=== PATIENT | male | born 1930 | race Caucasian/White ===

== ENCOUNTER 2018-05-13 10:06 | Inpatient (IN) | payer MEDICARE, OTHER ==
[2018-05-13 10:52] LABS: Hemoglobin 10.3 g/dL (14.0-18.0); Mean Corpuscular HGB CONC 31.8 g/dL (32.0-36.0); Mean Corpuscular Hemoglobin 32.8 pg (27.0-31.0); Mean Platelet Volume 8.8 fL (7.4-10.4); Platelet Count 386 thou/uL (130-400); RBC Distribution Width 20.6 % (11.5-14.5); Red Blood Cell (RBC) Count 3.14 mill/uL (4.70-6.10); White Blood Cell (WBC) Count 11.4 thou/uL (4.8-10.8)
[2018-05-13 11:11] LABS: Acanthocytes SLIGHT = 1-5 cells (100X) (None Seen); Band 39 % (5-11); Burr Cells SLIGHT = 2-5 cells (100X) (0-1/hpf); Hypochromia SLIGHT = 6-15 cells (100X) (0-5/hpf); Lymphocytes 11 % (21-51); MDiff Complete? YES; Macrocytosis SLIGHT = 6-15 cells (100X) (0-5/hpf); Monocytes 4 % (0-10); Neutrophil 45 % (42-75); PLT Morphology Comment Appears Adequate; Polychromasia SLIGHT = 2-3 cells (100X) (0-2/hpf); Target Cells SLIGHT = 2-5 cells (100X) (0-1/hpf)
[2018-05-13 11:12] LABS: ALT (SGPT) 7 U/L (8-55); AST (SGOT) 15 U/L (5-34); Albumin 3.9 g/dL (3.4-4.8); Alkaline Phosphatase 95 U/L (40-150); Anion Gap 14 mmol/L (10-20); BUN (Urea Nitrogen) 55 mg/dL (8.4-25.7); Bilirubin, Total 0.8 mg/dL (0.2-1.2); Calc. Creatinine Clearance 0 mL/min (70-130); Calcium 9.3 mg/dL (7.8-10.44); Carbon Dioxide 18 mmol/L (23-31); Chloride 106 mmol/L (98-107); Estimated GFR-MDRD 28; Globulin 3.6 g/dL (2.4-3.5); Glucose 195 mg/dL (83-110); Potassium 4.8 mmol/L (3.5-5.1); Protein, Total 7.5 g/dL (5.8-8.1); Sodium 133 mmol/L (136-145)
--- NOTE | 2018-05-13 11:24 | RAD ---
PORTABLE CHEST ONE VIEW: Date: 05-13-18 Time: 10:54 a.m. History: Cough, dyspnea. FINDINGS/IMPRESSION: Comparison is made with exam of 10-29-16. Left sided pacemaker remains in place. The heart size is enlarged. Mild pulmonary vascular congestion . Infiltrate is seen in the right infrahilar region. No pneumothoraces or large effusions identified. POS: [facility]
[2018-05-13] MEDS ORDERED: Water For Inject, Bacteriostat 0 ML ONE (11:26)
[2018-05-13] MEDS ORDERED: Water For Inject, Bacteriostat 30 ML ONE (11:26)
[2018-05-13] MEDS ORDERED: methylPREDNISolone Sod Succ/PF 125 MG/2 ML VIAL ONE (11:26)
[2018-05-13] MEDS ORDERED: Sodium Chloride 0.9% 100 ML ONE (11:45)
[2018-05-13] MEDS ORDERED: Piperacillin/Tazobactam 4.5 GM VIAL ONE (11:45)
[2018-05-13] MEDS ORDERED: Vancomycin HCl 1 GM in Premix Bag 1 BAG IVPB SCH (12:00)
[2018-05-13 12:40] LABS: CKMB 2.5 ng/mL (0-6.6)
--- NOTE | 2018-05-13 14:15 | PDOC.FPRHP ---
- History of Present Illness Chief Complaint: SOB History of Present Illness: This is an 87 yo M here for SOB. Patient is a resident at a long term facility and is a poor historian despite being AXOX3. Patient is unable to state how long he has had symptoms. Patient describes having a cough productive of yellow sputum. Patient endorse diarrhea, which is normal for him. Patient able to states name, , month/year, but states that he is 30-40 yrs old and lives w/ his mother. Patient has a PMH significant for COPD, afib, CAD, CHF, and CKD III. Patient denies fever/chills, NV, wheezing, chest or abdominal pain, LE swelling. ED Course: Given 324 mg oral, 1g Vanc IV, 750mg levaquin IV, 4.5g IV zosyn, methylprednisolone 125mg IV, and 3ml Duoneb - Allergies/Adverse Reactions Allergies Allergy/AdvReac Type Severity Reaction Status Date / Time gabapentin Allergy Unknown Verified 05/13/18 19:00 propoxyphene napsylate Allergy Unknown Verified 05/13/18 19:00 [facility] tramadol Allergy Unknown Verified 05/13/18 19:00 - Home Medications Medication Instructions Recorded Confirmed Type Acetaminophen [Tylenol] 650 mg PO Q4HR PRN 05/13/18 05/13/18 History Albuterol Sulfate [Proair 90 mcg IH BID 05/13/18 05/13/18 History Respiclick] Ascorbic Acid [Vitamin C] 250 mg PO DAILY 05/13/18 05/13/18 History Carvedilol [Coreg] 3.125 mg PO BID 05/13/18 05/13/18 History Cholecalciferol (Vitamin D3) 2,000 unit PO DAILY 05/13/18 05/13/18 History [Vitamin D3] Citalopram [CeleXA] 10 mg PO DAILY 05/13/18 05/13/18 History Diclofenac Sodium [Diclofono] 2.5 gm TP QID PRN 05/13/18 05/13/18 History Ferrous Sulfate [Feosol] 325 mg PO DAILY 05/13/18 05/13/18 History Folic Acid [Folvite] 1 mg PO DAILY 05/13/18 05/13/18 History Furosemide [Lasix] 20 mg PO 1200 05/13/18 05/13/18 History Furosemide [Lasix] 40 mg PO DAILY 05/13/18 05/13/18 History Isosorbide Mononitrate [Imdur ER] 30 mg PO DAILY 05/13/18 05/13/18 History Magnesium Oxide [Magnesium] 400 mg PO DAILY 05/13/18 05/13/18 History Pantoprazole Sodium 40 mg PO DAILY 05/13/18 05/13/18 History Simvastatin [Zocor] 10 mg PO HS 05/13/18 05/13/18 History - History PMHx: COPD, CHF - 2017 had EF 20-25%, atrial fibrillation, CAD, CKD III, LA, HLD , HTN, depression PSHx: colectomy, appendectomy, pacemaker, cholecystectomy, back surgery FHx: unknown Social: states he is a never smoker, occasional beer drinker, denies drug use - Review of Systems General: denies: fever/chills, weight/appetite/sleep changes, night sweats, fatigue ENT: denies: nasal congestion, rhinorrhea Respiratory: reports: cough, shortness of breath. denies: congestion, exercise intolerance Cardiovascular: denies: chest pain, palpitation, edema Gastrointestinal: reports: diarrhea. denies: nausea, vomiting, constipation, abdominal pain Genitourinary: denies: dysuria Skin: denies: rashes Musculoskeletal: denies: pain, swelling - Vital signs BP: 138/91 HR: 86 RR: 24 Tmax: 98.5F Pox: 91% on RA; 98% on 2LNC Wt: 73kg - Physical Exam Constitutional: awake, alert and oriented -Constitutional: elderly male, no acute distress HEENT: normocephalic and atraumatic, PERRLA, EOMI, MMM -HEENT: poor dentition, difficulty hearing Neck: supple, FROM Chest: no-tender to palpation, no lesions Heart: RRR, normal S1/S2, pulses present, no edema Lungs: no respiratory distress, no retractions -Lungs: expiratory wheeze heart diffusely, more prominent in right upper lobe Abdomen: soft, non-tender, bowel sounds present, no masses/distention, no hernias Musculoskeletal: normal structure, ROM grossly normal Neurological: no focal deficit Skin: no rash/lesions -Psychiatric: AXOX3, although becomes confused at times FMR H&P: Results - Labs Result Diagrams: 05/14/18 05:33 05/14/18 05:33 Lab results: WBC 11.4 thou/uL (4.8-10.8) H 05/13/18 10:33 Hgb 10.3 g/dL (14.0-18.0) L 05/13/18 10:33 Hct 32.3 % (42.0-52.0) L 05/13/18 10:33 MCV 103.0 fL (78.0-98.0) H 05/13/18 10:33 Plt Count 386 thou/uL (130-400) 05/13/18 10:33 Band Neuts % (Manual) 39 % (5-11) H 05/13/18 10:33 Sodium 133 mmol/L (136-145) L 05/13/18 10:33 Potassium 4.8 mmol/L (3.5-5.1) 05/13/18 10:33 Chloride 106 mmol/L (98-107) 05/13/18 10:33 Carbon Dioxide 18 mmol/L (23-31) L 05/13/18 10:33 BUN 55 mg/dL (8.4-25.7) H 05/13/18 10:33 Creatinine 2.20 mg/dL (0.7-1.3) H 05/13/18 10:33 Glucose 195 mg/dL (83-110) H 05/13/18 10:33 Lactic Acid 1.1 mmol/L (0.5-2.2) 05/13/18 13:00 Calcium 9.3 mg/dL (7.8-10.44) 05/13/18 10:33 Total Bilirubin 0.8 mg/dL (0.2-1.2) 05/13/18 10:33 AST 15 U/L (5-34) 05/13/18 10:33 ALT 7 U/L (8-55) L 05/13/18 10:33 Alkaline Phosphatase 95 U/L (40-150) 05/13/18 10:33 CK-MB (CK-2) 2.5 ng/mL (0-6.6) 05/13/18 10:28 B-Natriuretic Peptide 4221.9 pg/mL (0-100) H 05/13/18 10:28 Serum Total Protein 7.5 g/dL (5.8-8.1) 05/13/18 10:33 Albumin 3.9 g/dL (3.4-4.8) 05/13/18 10:33 - Radiology Interpretation Chest x-ray Status: report reviewed by me (Heart size enlarged, pulm vascular congestion; infiltrate in right infrahilar region) FMR H&P: A/P - Problem List (1) Community acquired bacterial pneumonia Current Visit: Yes Status: Acute Code(s): J15.9 - UNSPECIFIED BACTERIAL PNEUMONIA (2) Acute worsening of stage 3 chronic kidney disease Current Visit: No Status: Acute Code(s): N18.3 - CHRONIC KIDNEY DISEASE, STAGE 3 (MODERATE) (3) Dementia Current Visit: No Status: Acute Code(s): F03.90 - UNSPECIFIED DEMENTIA WITHOUT BEHAVIORAL DISTURBANCE Qualifiers: Dementia type: unspecified type Comment: Supportive measures, re-orientation techniques (4) CAD (coronary artery disease) Current Visit: No Status: Chronic Code(s): I25.10 - ATHSCL HEART DISEASE OF [place] CORONARY ARTERY W/O ANG PCTRS Comment: No ACS, continue medical mgmt (5) COPD (chronic obstructive pulmonary disease) Current Visit: No Status: Chronic Comment: No exacerbation currently, general pulmonary supportive measures. (6) Chronic systolic (congestive) heart failure Current Visit: No Status: Chronic Code(s): I50.22 - CHRONIC SYSTOLIC ( CONGESTIVE) HEART FAILURE Comment: EF 25%, compensated currently (7) Dyslipidemia Current Visit: No Status: Chronic Code(s): E78.5 - HYPERLIPIDEMIA, UNSPECIFIED (8) Hx of deep venous thrombosis Current Visit: Yes Status: Acute Code(s): Z86.718 - PERSONAL HISTORY OF OTHER VENOUS THROMBOSIS AND EMBOLISM (9) Atrial fibrillation Current Visit: No Status: Chronic Code(s): I48.91 - UNSPECIFIED ATRIAL FIBRILLATION Qualifiers: Atrial fibrillation type: paroxysmal Qualified Code(s): I48.0 - Paroxysmal atrial fibrillation Comment: paced rhythm, rate controlled currently (10) Macrocytic anemia Current Visit: No Status: Chronic Code(s): D53.9 - NUTRITIONAL ANEMIA, UNSPECIFIED (11) COPD exacerbation Current Visit: Yes Status: Acute Code(s): J44.1 - CHRONIC OBSTRUCTIVE PULMONARY DISEASE W (ACUTE) EXACERBATION - Plan Sepsis 2/2 to COPD exacerbation 2/2 CAP - patient met sepsis criteria in the ED w/ WBC 11.4, RR 24 + PNA source - 39 % bands present - Will give gentle fluids - CURB 65: 3 points - CXR: infiltrate in right infrahilar region - pro delmy pending - LA 1.9, will trend - blood cx pending - Urine: strep pneumo and legionelle pending - for COPD exacerbation and CAP coverage: will continue w/ vanc/zosyn/levaquin - for COPD exacerbation: duonebs and prednisone Elevated Trop - 0.103 - Will trend X 3 - no active chest pain CULLEN on CKD - BUN 55,Cr 2.20, elevated from baseline - CrCl 24 - Will monitor fluid status Hyponatremia - 133, will continue to monitor - daily BMPs Macrocytic anemia - Hgb 10.3 - MCV 103 - Will obtain folate, B12 CHFrEF, present on admission - Echo in 2017: EF 20-25% - BNP 4000, at baseline CAD - aware, will continue home meds previous DVT - on xarelto -will continue CAD - aware, will continue home meds HLD - aware, will continue home meds HTN - aware, will continue home meds Atrial Fibrillation - patient will monitored on tele - sinus rhythm at this time hx of LA, pacemaker in place - aware, will trend troponins Dementia - Patient does not have capacity at this time to make medical decision. Patient knows name/ but does not always know where he is. Patient does now know why is he here. - Working on finding next of kin/medical decision maker. Requested records from his NH - After review of records - patients daughter info in 07/2016: [phone] & [phone] - will attempt to call to find out more information DISPO: admit to tele inpatient. CODE: FULL Case discussed with Dr. Love FMR H&P: Upper Level - Pertinent history 87M presenting [facility] for [facility]3 days of increased productive cough and shortness of breath. Sputum has been white/yellow per nursing staff. Apparently, patient was hypoxic to 88% on RA while en route to ED via EMS. He was given one Duoneb and 125mg of Solu-medrol and then evaluated by ED physician. Patient appears to have dementia and is not a reliable historian. No paperwork was sent from facility. PMH includes HFrEF (last TTE from July 2016 shows EF of 20-25%) s/p pacemaker, COPD, afib, CAD s/p LA, and CKD III, HTN, HLD. - Pertinent findings CXR: likely RML infiltrate LA: 1.9 BNP: roughly 4000, baseline appears to be 7427-6852 WBC: 11.4 BUN/Cr: 55/2.2 - Plan Date/Time: 05/13/18 1411 I, Mason Church, have evaluated this patient and agree with findings/plan as outlined by [facility] intern[facility] resident. Pertinent changes/additions are listed here. HCAP: start vanc, levaquin, and zosyn due to [facility] affiliation. Procalcitonin pending. Does not appear volume down at this time. Will only give a 500cc bolus given his severely reduced ejection fraction. Blood and urine cultures pending. COPD exacerbation: physical exam consistent with exacerbation. Start oral steroids and continue antibiotics. Duonebs PRN CULLEN on CKDIII: Monitor with AM labs s/p fluids Indeterminate troponin: trend and f/u accordingly. Asymptomatic. Attending Addendum - Attending Addendum Date/Time: 05/15/18 8511 I personally evaluated the patient and discussed the management with Dr. Dickerson at the time of admission. I agree with the History, Examination, Assessment and Plan documented above with any addition or exceptions noted below.
[2018-05-13] MEDS ORDERED: Ondansetron PF 4 MG/2 ML Vial IVP PRN ×2 (16:55→17:09)
[2018-05-13] MEDS ORDERED: Acetaminophen 325 MG TAB PO PRN (16:55)
[2018-05-13] MEDS ORDERED: Ondansetron ODT 4 MG TAB SL PRN (16:55)
[2018-05-13] MEDS ORDERED: Albuterol Sulfate 2.5 mg/3 ml Neb NEB PRN (17:09)
[2018-05-13] MEDS ORDERED: Ondansetron ODT 4 MG TAB PO PRN (17:09)
[2018-05-13 18:26] LABS: Troponin I 0.113 ng/mL (< 0.028)
[2018-05-13 18:28] VITALS: BMI 25.7
[2018-05-13] MEDS: Piperacillin/Tazobactam 4.5 GM in Sodium Chloride 0.9% 100 ML IVPB SCH ×2 (18:42→23:50)
[2018-05-13] MEDS: Lactated Ringer's 500 ML IV SCH (18:46)
[2018-05-14] MEDS: Piperacillin/Tazobactam 4.5 GM in Sodium Chloride 0.9% 100 ML IVPB SCH ×3 (05:12→16:49)
[2018-05-14 06:01] LABS: Legionella Urinary Ag Negative (Negative); Strep pneumo Urine Ag NEGATIVE (NEGATIVE)
[2018-05-14 06:13] LABS: Anion Gap 13 mmol/L (10-20); BUN (Urea Nitrogen) 56 mg/dL (8.4-25.7); Calc. Creatinine Clearance 23 mL/min (70-130); Calcium 8.9 mg/dL (7.8-10.44); Carbon Dioxide 18 mmol/L (23-31); Chloride 108 mmol/L (98-107); Estimated GFR-MDRD 28; Glucose 184 mg/dL (83-110); Potassium 4.2 mmol/L (3.5-5.1); Sodium 135 mmol/L (136-145)
[2018-05-14] MEDS: Lactated Ringer's 500 ML IV SCH (06:25)
--- NOTE | 2018-05-14 06:30 | PDOC.FM ---
- Subjective Subjective: Pt reports good rest overnight. He has no complaints at this time. Denies fever/chills, denies sob, denies cough - Objective MAR Reviewed: Yes Vital Signs & Weight: Vital Signs (12 hours) Temp Pulse Resp BP Pulse Ox 05/14/18 04:00 98.5 F 71 20 109/63 96 05/14/18 03:45 96 05/13/18 23:29 96 05/13/18 20:16 97.9 F 71 20 136/66 96 05/13/18 19:13 72 20 96 Weight Weight 70.307 kg Result Diagrams: 05/14/18 05:33 05/14/18 05:33 Phys Exam - Physical Examination Constitutional: NAD HEENT: moist MMs, sclera anicteric Neck: no JVD, supple expiratory crackles in bilateral lung bases Cardiovascular: RRR, no significant murmur Gastrointestinal: soft, non-tender Musculoskeletal: pulses present Neurological: non-focal, moves all 4 limbs Psychiatric: normal affect Skin: no rash, normal turgor Dx/Plan (1) COPD exacerbation Code(s): J44.1 - CHRONIC OBSTRUCTIVE PULMONARY DISEASE W (ACUTE) EXACERBATION Status: Acute (2) Community acquired bacterial pneumonia Code(s): J15.9 - UNSPECIFIED BACTERIAL PNEUMONIA Status: Acute (3) Hx of deep venous thrombosis Code(s): Z86.718 - PERSONAL HISTORY OF OTHER VENOUS THROMBOSIS AND EMBOLISM Status: Acute (4) Acute worsening of stage 3 chronic kidney disease Code(s): N18.3 - CHRONIC KIDNEY DISEASE, STAGE 3 (MODERATE) Status: Acute (5) Dementia Code(s): F03.90 - UNSPECIFIED DEMENTIA WITHOUT BEHAVIORAL DISTURBANCE Status: Acute Qualifiers: Dementia type: unspecified type (6) CAD (coronary artery disease) Code(s): I25.10 - ATHSCL HEART DISEASE OF [place] CORONARY ARTERY W/O ANG PCTRS Status: Chronic (7) COPD (chronic obstructive pulmonary disease) Status: Chronic (8) Chronic systolic (congestive) heart failure Code(s): I50.22 - CHRONIC SYSTOLIC (CONGESTIVE) HEART FAILURE Status: Chronic - Plan Plan: Sepsis 2/2 to COPD exacerbation 2/2 CAP A- patient met sepsis criteria in the ED w/ WBC 11.4, RR 24 + PNA source. 39 % bands present. CXR: infiltrate in right infrahilar region. pro delmy wnl. LA 1.9-> 1.1->1.3. Urine strep pneumo and legionelle negative P- continue PO hydration - f/u on blood cx - continue w/ vanc/zosyn/levaquin, will de-escalate with BCx - duonebs and prednisone indeterminate Trop - 0.103->0.110->0.113 -no cardiac symptoms, will monitor symptoms CULLEN on CKD - BUN 55,Cr 2.21, elevated from baseline but stable - Will monitor fluid status, PO hydration Hyponatremia, resolved - 135, will continue to monitor Macrocytic anemia - Hgb 10.3 - MCV 103 - Will obtain folate, B12 CHFrEF, present on admission - Echo in 2017: EF 20-25% - BNP 4000, at baseline CAD - aware, will continue home meds previous DVT - on xarelto -will continue CAD - aware, will continue home meds HLD - aware, will continue home meds HTN - aware, will continue home meds Atrial Fibrillation - patient will monitored on tele. sinus rhythm at this time Dementia - Patient does not have capacity at this time to make medical decision. Patient knows name/ but does not always know where he is. Patient does now know why is he here. - Working on finding next of kin/medical decision maker. Requested records from his NH - After review of records - patients daughter info in 07/2016: [phone] & [phone] - will attempt to call to find out more information DISPO: admit to tele inpatient. CODE: FULL
[2018-05-14 06:35] LABS: Band 10 % (5-11); Hemoglobin 9.7 g/dL (14.0-18.0); Hypochromia SLIGHT = 6-15 cells (100X) (0-5/hpf); Lymphocytes 5 % (21-51); MDiff Complete? YES; Mean Corpuscular HGB CONC 31.2 g/dL (32.0-36.0); Mean Corpuscular Hemoglobin 32.3 pg (27.0-31.0); Mean Platelet Volume 8.8 fL (7.4-10.4); Neutrophil 85 % (42-75); PLT Morphology Comment Appears Adequate; Platelet Count 376 thou/uL (130-400); RBC Distribution Width 20.8 % (11.5-14.5)
[2018-05-14 11:12] LABS: Folate (Folic Acid) 32.4 ng/mL (7.0-31.4)
[2018-05-14] MEDS: predniSONE 20 MG TAB PO SCH (12:03)
--- NOTE | 2018-05-14 13:58 | EKG ---
Test Reason : Blood Pressure : / mmHG Vent. Rate : 077 BPM Atrial Rate : 089 BPM P-R Int : 000 ms QRS Dur : 132 ms QT Int : 452 ms P-R-T Axes : 000 110 -79 degrees QTc Int : 511 ms Atrial fibrillation with premature ventricular or aberrantly conducted complexes Left ventricular hypertrophy with QRS widening Possible Lateral infarct , age undetermined Inferior infarct , age undetermined Abnormal ECG Confirmed by KAREN RANDHAWA D.O. ([id number]), metropolitan editor GARETT NUGENT ([id number]) on 05/14/2018 1:58:49 PM Referred By: Confirmed By:KAREN RANDHAWA D.O.
[2018-05-14] MEDS ORDERED: Vancomycin HCl 1 GM in Sodium Chloride 0.9% 250 ML 300 ML IVPB SCH (15:00)
[2018-05-14] MEDS ORDERED: Vancomycin HCl 1 GM in Premix Bag 1 BAG IVPB SCH (15:00)
[2018-05-14] MEDS: Acetaminophen 325 MG TAB PO PRN ×2 (18:04→22:19)
[2018-05-15] MEDS: Piperacillin/Tazobactam 4.5 GM in Sodium Chloride 0.9% 100 ML IVPB SCH ×2 (00:04→05:25)
--- NOTE | 2018-05-15 06:03 | PDOC.FM ---
- Subjective Subjective: Pt reports feeling better this morning but has continued cough. No complaints at this time no fever/chills, cough, no sob, no cp - Objective MAR Reviewed: Yes Vital Signs & Weight: Vital Signs (12 hours) Temp Pulse Resp BP Pulse Ox 05/15/18 04:00 97.5 F L 86 18 142/73 H 93 L 05/15/18 02:31 93 L 05/15/18 00:05 97.8 F 83 20 130/63 94 L 05/14/18 22:52 92 L 05/14/18 20:30 97.6 F 83 20 124/57 L 97 05/14/18 19:32 93 L 05/14/18 19:31 93 L Weight Weight 73.21 kg I&O: 05/13/18 05/14/18 05/15/18 06:59 06:59 06:59 Intake Total 740 600 Output Total 200 975 Balance 540 -375 Result Diagrams: 05/15/18 07:45 05/15/18 07:45 Phys Exam - Physical Examination Constitutional: NAD HEENT: moist MMs, sclera anicteric Neck: no nodes, no JVD Respiratory: no rales crackles at R lung apex Cardiovascular: RRR, no significant murmur Gastrointestinal: soft, non-tender Musculoskeletal: no edema, pulses present Neurological: normal sensation Lymphatic: no nodes Psychiatric: normal affect Skin: no rash, normal turgor Dx/Plan (1) COPD exacerbation Code(s): J44.1 - CHRONIC OBSTRUCTIVE PULMONARY DISEASE W (ACUTE) EXACERBATION Status: Acute (2) Community acquired bacterial pneumonia Code(s): J15.9 - UNSPECIFIED BACTERIAL PNEUMONIA Status: Acute (3) Hx of deep venous thrombosis Code(s): Z86.718 - PERSONAL HISTORY OF OTHER VENOUS THROMBOSIS AND EMBOLISM Status: Acute (4) Acute worsening of stage 3 chronic kidney disease Code(s): N18.3 - CHRONIC KIDNEY DISEASE, STAGE 3 (MODERATE) Status: Acute (5) Dementia Code(s): F03.90 - UNSPECIFIED DEMENTIA WITHOUT BEHAVIORAL DISTURBANCE Status: Acute Qualifiers: Dementia type: unspecified type (6) CAD (coronary artery disease) Code(s): I25.10 - ATHSCL HEART DISEASE OF [place] CORONARY ARTERY W/O ANG PCTRS Status: Chronic (7) COPD (chronic obstructive pulmonary disease) Status: Chronic (8) Chronic systolic (congestive) heart failure Code(s): I50.22 - CHRONIC SYSTOLIC (CONGESTIVE) HEART FAILURE Status: Chronic - Plan Plan: Sepsis 2/2 to COPD exacerbation 2/2 CAP A- BCx shows NGTD. patient met sepsis criteria in the ED w/ WBC 11.4, RR 24 + PNA source. 39 % bands present. CXR: infiltrate in right infrahilar region. pro delmy wnl. LA 1.9->1.1->1.3. Urine strep pneumo and legionelle negative P- continue PO hydration - will consider switching to just levaquin - duonebs and prednisone indeterminate Trop - 0.103->0.110->0.113 -no cardiac symptoms, will monitor symptoms CULLEN on CKD - BUN 55,Cr 2.21, elevated from baseline but stable - repeat bmp this AM - Will monitor fluid status, PO hydration Hyponatremia, resolved - 135 yesterday, will continue to monitor Macrocytic anemia - Hgb 10.3 - MCV 103 - folate and b12 wnl CHFrEF, present on admission - Echo in 2017: EF 20-25% - BNP 4000, at baseline CAD - aware, will continue home meds previous DVT - on xarelto -will continue CAD - aware, will continue home meds HLD - aware, will continue home meds HTN - aware, will continue home meds Atrial Fibrillation - patient will monitored on tele. sinus rhythm at this time Dementia - Patient does not have capacity at this time to make medical decision. Patient knows name/ but does not always know where he is. Patient does now know why is he here. - Working on finding next of kin/medical decision maker. Requested records from his OR - After review of records - patients daughter info in 07/2016: [phone] & [phone] - called her and awaiting call back. DISPO: admit to tele inpatient. CODE: FULL
[2018-05-15 08:18] LABS: Anion Gap 13 mmol/L (10-20); BUN (Urea Nitrogen) 59 mg/dL (8.4-25.7); Calc. Creatinine Clearance 23 mL/min (70-130); Calcium 9.2 mg/dL (7.8-10.44); Carbon Dioxide 19 mmol/L (23-31); Chloride 103 mmol/L (98-107); Estimated GFR-MDRD 28; Glucose 167 mg/dL (83-110); Potassium 4.4 mmol/L (3.5-5.1); Sodium 131 mmol/L (136-145)
[2018-05-15 08:19] LABS: Hemoglobin 10.3 g/dL (14.0-18.0); Mean Corpuscular HGB CONC 31.2 g/dL (32.0-36.0); Mean Corpuscular Hemoglobin 32.4 pg (27.0-31.0); Mean Platelet Volume 8.2 fL (7.4-10.4); Platelet Count 387 thou/uL (130-400); RBC Distribution Width 21.1 % (11.5-14.5); Red Blood Cell (RBC) Count 3.17 mill/uL (4.70-6.10); White Blood Cell (WBC) Count 9.1 thou/uL (4.8-10.8)
[2018-05-15] MEDS: predniSONE 20 MG TAB PO SCH (08:53)
[2018-05-15 09:52] LABS: Acanthocytes MODERATE= 6-15 cells (100X) (None Seen); Band 5 % (5-11); Burr Cells MODERATE= 6-15 cells (100X) (0-1/hpf); Hypochromia MODERATE=16-30 cells (100X) (0-5/hpf); Large Platelets SLIGHT; MDiff Complete? YES; Macrocytosis MODERATE=16-30 cells (100X) (0-5/hpf); Monocytes 11 % (0-10); Neutrophil 82 % (42-75); Nucleated RBC 3 % (0); PLT Morphology Comment Appears Adequate; Polychromasia SLIGHT = 2-3 cells (100X) (0-2/hpf); Reactive Lymphocytes 2 % (0-10); Target Cells SLIGHT = 2-5 cells (100X) (0-1/hpf)
[2018-05-15] MEDS: Acetaminophen 325 MG TAB PO PRN ×2 (13:54→22:33)
[2018-05-16] MEDS: Acetaminophen 325 MG TAB PO PRN ×2 (05:17→12:07)
[2018-05-16 05:47] LABS: Anion Gap 14 mmol/L (10-20); BUN (Urea Nitrogen) 62 mg/dL (8.4-25.7); Calc. Creatinine Clearance 22 mL/min (70-130); Calcium 9.8 mg/dL (7.8-10.44); Carbon Dioxide 19 mmol/L (23-31); Chloride 100 mmol/L (98-107); Estimated GFR-MDRD 25; Glucose 139 mg/dL (83-110); Potassium 4.4 mmol/L (3.5-5.1); Sodium 129 mmol/L (136-145)
[2018-05-16 05:57] LABS: Band 3 % (5-11); Hemoglobin 11.2 g/dL (14.0-18.0); Hypochromia SLIGHT = 6-15 cells (100X) (0-5/hpf); Lymphocytes 4 % (21-51); MDiff Complete? YES; Macrocytosis SLIGHT = 6-15 cells (100X) (0-5/hpf); Mean Corpuscular HGB CONC 30.7 g/dL (32.0-36.0); Mean Corpuscular Hemoglobin 31.8 pg (27.0-31.0); Monocytes 4 % (0-10); Neutrophil 89 % (42-75); PLT Morphology Comment Appears Increased; Platelet Count 434 thou/uL (130-400); Polychromasia SLIGHT = 2-3 cells (100X) (0-2/hpf); RBC Distribution Width 20.9 % (11.5-14.5); Red Blood Cell (RBC) Count 3.52 mill/uL (4.70-6.10); Target Cells SLIGHT = 2-5 cells (100X) (0-1/hpf); White Blood Cell (WBC) Count 10.9 thou/uL (4.8-10.8)
--- NOTE | 2018-05-16 08:03 | PRG ---
DATE OF SERVICE: ADDENDUM: Please see the note from Dr. Carlson, for which I agree. This is an 87-year-old, here for COPD and pneumonia, currently on Levaquin, Zosyn, and vancomycin, getting nebulizers, oxygen. Chest is noted for scattered wheezes, rhonchi, and definite crackles on the right side with pneumonias. The plan is to continue the same antibiotics and supportive care for him. Of note, he also has atrial fibrillation and congestive heart failure, systolic, so certainly numerous issues going on right now, but main thing is going to be the pneumonia and treat with antibiotics. Job ID: [id number]
--- NOTE | 2018-05-16 09:01 | PDOC.FM ---
- Subjective Subjective: Pt reports feeling better this AM. Mental status seems to have improved some more. No complaints at this time no fever/chills, no cp no palpitations - Objective MAR Reviewed: Yes Vital Signs & Weight: Vital Signs (12 hours) Temp Pulse Resp BP Pulse Ox 05/16/18 07:50 97.9 F 100 19 161/74 H 95 05/16/18 07:01 98 05/16/18 06:59 96 20 98 05/16/18 04:55 97.9 F 98 23 H 149/89 H 93 L 05/16/18 03:43 20 96 05/16/18 01:37 113 H 16 97 05/16/18 00:00 97.9 F 107 H 22 H 141/79 H 95 05/15/18 21:38 91 16 98 Weight Weight 72.575 kg I&O: 05/15/18 05/16/18 05/17/18 06:59 06:59 06:59 Intake Total 600 1000 Output Total 975 1025 Balance -375 -25 Result Diagrams: 05/19/18 04:32 05/20/18 04:23 Phys Exam - Physical Examination Constitutional: NAD HEENT: moist MMs, sclera anicteric Neck: no nodes, no JVD Respiratory: no rhonchi mild crackles at R lung apex. much improved Cardiovascular: RRR, no significant murmur Gastrointestinal: soft, non-tender Musculoskeletal: no edema, pulses present Neurological: non-focal, normal sensation Lymphatic: no nodes Psychiatric: normal affect Skin: no rash, normal turgor Dx/Plan (1) COPD exacerbation Code(s): J44.1 - CHRONIC OBSTRUCTIVE PULMONARY DISEASE W (ACUTE) EXACERBATION Status: Acute (2) Community acquired bacterial pneumonia Code(s): J15.9 - UNSPECIFIED BACTERIAL PNEUMONIA Status: Acute (3) Hx of deep venous thrombosis Code(s): Z86.718 - PERSONAL HISTORY OF OTHER VENOUS THROMBOSIS AND EMBOLISM Status: Acute (4) Acute worsening of stage 3 chronic kidney disease Code(s): N18.3 - CHRONIC KIDNEY DISEASE, STAGE 3 (MODERATE) Status: Acute (5) Dementia Code(s): F03.90 - UNSPECIFIED DEMENTIA WITHOUT BEHAVIORAL DISTURBANCE Status: Acute Qualifiers: Dementia type: unspecified type (6) CAD (coronary artery disease) Code(s): I25.10 - ATHSCL HEART DISEASE OF [place] CORONARY ARTERY W/O ANG PCTRS Status: Chronic (7) COPD (chronic obstructive pulmonary disease) Status: Chronic (8) Chronic systolic (congestive) heart failure Code(s): I50.22 - CHRONIC SYSTOLIC (CONGESTIVE) HEART FAILURE Status: Chronic - Plan Plan: Sepsis 2/2 to COPD exacerbation 2/2 CAP A- Pt is improved clinically. BCx shows NGTD. patient met sepsis criteria in the ED w/ WBC 11.4, RR 24 + PNA source. 39 % bands present. CXR: infiltrate in right infrahilar region. pro delmy wnl. LA 1.9->1.1->1.3. Urine strep pneumo and legionelle negative P- continue PO hydration - will consider switching to PO levaquin - duonebs and prednisone indeterminate Trop - 0.103->0.110->0.113 -no cardiac symptoms, will monitor symptoms CULLEN on CKD - elevated from baseline but stable - Will consider gently IVF Hyponatremia, resolved - 129 today, will continue to monitor - will consider PO free water restriction and give gentle NS Macrocytic anemia - Hgb improved marginally - MCV 103 - folate and b12 wnl CHFrEF, present on admission - Echo in 2017: EF 20-25% - BNP 4000, at baseline CAD - aware, will continue home meds previous DVT - on xarelto -will continue HLD - aware, will continue home meds HTN - aware, will continue home meds Atrial Fibrillation - patient will monitored on tele. sinus rhythm at this time. pt has pacemaker Dementia - Patient does not have capacity at this time to make medical decision. Patient knows name/ but does not always know where he is. Patient does now know why is he here. - Working on finding next of kin/medical decision maker. Requested records from his NH - After review of records - patients daughter info in 07/2016: [phone] & [phone] - called her and awaiting call back. DISPO: admit to tele inpatient. CODE: FULL Addendum - Attending - Attending Attestation Date/Time: 05/16/18 1212 I personally evaluated the patient and discussed the management with Dr. Carlson and Dr. Mariee I agree with the History, Examination, Assessment and Plan documented above with any addition or exceptions noted below. 87 yo male with multiple medical conditions admitted for Sepsis. HD#3 Patient reports he is feeling well. No specific complaints. VS, Labs and imaging reviewed. Diffuse crackles on exam. 1. Sepsis: Resolved. 2. CAP vs HAP: Procal not indicative of bacterial infection but not trended to confirm. No evidence of lactic acidosis. De-escalate antibiotics. VS stable. Afebrile. Cultures negative. Urine studies negative for bacterial PNA. Flu negative. Do not believe this is bacterial. No need to trend procal now. Consider discontinuing antibiotics. 3. COPD ex: Continue oral steroids and scheduled breathing treatments. May continue antibiotics for treatment but could also consider d/c due to procal. 4. rEFHF with acute ex: Due to infection mild ex. Will continue to treat with diuretics. Restart home meds at this time. Adjust as needed. Continue daily weights and strict I/Os. 5. CULLEN on CKD III: Renally dose all meds. Will give gentle hydration today to help with GFR. Monitor closely. 6. hx of A. fib: Monitor on tele. 7. Dementia: Stable. No evidence of sundowning. Will discuss likely need to transition to patient into completely detention facility instead of assisted living. Dispo: Gentle fluids. Continue inpatient due to worsening renal function. Adjust meds. Ren
[2018-05-16] MEDS: predniSONE 20 MG TAB PO SCH (09:48)
[2018-05-16] MEDS: Sodium Chloride 0.9% 1,000 ML IV SCH (12:36)
[2018-05-16] MEDS: Carvedilol 3.125 MG TAB PO SCH (20:30)
[2018-05-16] MEDS: Simvastatin 5 MG TAB PO SCH (20:30)
[2018-05-16] MEDS ORDERED: Non-Formulary Item 1 EACH (Simvastatin [Zocor] 10 MG) PO SCH (21:00)
[2018-05-17] MEDS: Sodium Chloride 0.9% 1,000 ML IV SCH (06:00)
[2018-05-17] MEDS: Acetaminophen 325 MG TAB PO PRN ×2 (06:03→22:12)
[2018-05-17] MEDS ORDERED: guaiFENesin ER 600 MG TAB PO SCH (08:30)
[2018-05-17] MEDS: Ferrous Sulfate 325 MG TAB PO SCH (08:34)
[2018-05-17] MEDS: predniSONE 20 MG TAB PO SCH (08:34)
[2018-05-17] MEDS: Citalopram 10 MG TAB PO SCH (08:35)
[2018-05-17] MEDS: Ascorbic Acid 500 mg Chewable Tablet PO SCH (08:35)
[2018-05-17] MEDS: Carvedilol 3.125 MG TAB PO SCH ×2 (08:35→20:42)
[2018-05-17] MEDS: Folic Acid 1 MG TAB PO SCH (08:35)
[2018-05-17] MEDS ORDERED: Non-Formulary Item 1 EACH (Cholecalciferol (Vitamin D3) [Vitamin D3] 2,000 UNIT) PO SCH (09:00)
[2018-05-17] MEDS ORDERED: ASCORBIC ACID 250 MG PO SCH (09:00)
[2018-05-17 11:52] LABS: Albumin 3.3 g/dL (3.4-4.8)
[2018-05-17 11:53] LABS: Chloride 107 mmol/L (98-107); Potassium 4.7 mmol/L (3.5-5.1); Sodium 132 mmol/L (136-145)
[2018-05-17 11:54] LABS: Calcium 8.8 mg/dL (7.8-10.44); Glucose 144 mg/dL (83-110)
[2018-05-17 11:55] LABS: Protein, Total 6.3 g/dL (5.8-8.1)
[2018-05-17 11:56] LABS: Anion Gap 14 mmol/L (10-20); Carbon Dioxide 16 mmol/L (23-31)
[2018-05-17 11:57] LABS: Alkaline Phosphatase 55 U/L (40-150)
[2018-05-17 11:58] LABS: Calc. Creatinine Clearance 27 mL/min (70-130); Estimated GFR-MDRD 32
[2018-05-17 11:59] LABS: BUN (Urea Nitrogen) 60 mg/dL (8.4-25.7)
[2018-05-17 12:00] LABS: ALT (SGPT) 12 U/L (8-55); AST (SGOT) 26 U/L (5-34)
[2018-05-17 12:02] LABS: Bilirubin, Total 0.4 mg/dL (0.2-1.2)
--- NOTE | 2018-05-17 12:22 | PDOC.FM ---
- Subjective Subjective: Pt reports feeling well this morning but that he has more congestion and cough. no other complaints at this time No sob No fever/chills, no cp - Objective MAR Reviewed: Yes Vital Signs & Weight: Vital Signs (12 hours) Temp Pulse Resp BP Pulse Ox 05/17/18 12:07 98.1 F 86 18 139/66 98 05/17/18 11:04 90 20 95 05/17/18 08:31 98.0 F 98 142/84 H 94 L 05/17/18 07:14 97 05/17/18 07:12 90 20 97 05/17/18 04:00 97.3 F L 80 20 159/72 H 98 05/17/18 01:42 94 20 95 Weight Weight 73.618 kg I&O: 05/16/18 05/17/18 05/18/18 06:59 06:59 06:59 Intake Total 1000 1531 Output Total 1025 950 Balance -25 581 Result Diagrams: 05/19/18 04:32 05/20/18 04:23 Phys Exam - Physical Examination Constitutional: NAD HEENT: moist MMs, sclera anicteric Neck: no nodes, supple Respiratory: no wheezing expiratory crackles in bilat lung bases Cardiovascular: RRR, no significant murmur Gastrointestinal: soft, non-tender Musculoskeletal: no edema, pulses present Neurological: non-focal, normal sensation Psychiatric: normal affect Skin: no rash, normal turgor Dx/Plan (1) COPD exacerbation Code(s): J44.1 - CHRONIC OBSTRUCTIVE PULMONARY DISEASE W (ACUTE) EXACERBATION Status: Acute (2) Community acquired bacterial pneumonia Code(s): J15.9 - UNSPECIFIED BACTERIAL PNEUMONIA Status: Acute (3) Hx of deep venous thrombosis Code(s): Z86.718 - PERSONAL HISTORY OF OTHER VENOUS THROMBOSIS AND EMBOLISM Status: Acute (4) Acute worsening of stage 3 chronic kidney disease Code(s): N18.3 - CHRONIC KIDNEY DISEASE, STAGE 3 (MODERATE) Status: Acute (5) Dementia Code(s): F03.90 - UNSPECIFIED DEMENTIA WITHOUT BEHAVIORAL DISTURBANCE Status: Acute Qualifiers: Dementia type: unspecified type (6) CAD (coronary artery disease) Code(s): I25.10 - ATHSCL HEART DISEASE OF [place] CORONARY ARTERY W/O ANG PCTRS Status: Chronic (7) COPD (chronic obstructive pulmonary disease) Status: Chronic (8) Chronic systolic (congestive) heart failure Code(s): I50.22 - CHRONIC SYSTOLIC (CONGESTIVE) HEART FAILURE Status: Chronic - Plan Plan: Sepsis 2/2 to COPD exacerbation 2/2 CAP A- BCx shows NGTD. patient met sepsis criteria in the ED w/ WBC 11.4, RR 24 + PNA source. 39 % bands present. CXR: infiltrate in right infrahilar region. pro delmy wnl. LA 1.9->1.1->1.3. Urine strep pneumo and legionelle negative P- continue PO hydration - continue IV levaquin - duonebs and prednisone indeterminate Trop - 0.103->0.110->0.113 -no cardiac symptoms, will monitor symptoms CULLEN on CKD - elevated from baseline but stable - PO hydration Hyponatremia, resolved - 129 today, will continue to monitor Macrocytic anemia - Hgb improved marginally - MCV 103 - folate and b12 wnl CHFrEF, present on admission - Echo in 2017: EF 20-25% - BNP 4000, at baseline -Pt has bilateral lung crackles today, no complaints of SOB -will DC IVF CAD - aware, will continue home meds previous DVT - on xarelto -will continue HLD - aware, will continue home meds HTN - aware, will continue home meds Atrial Fibrillation - patient will monitored on tele. sinus rhythm at this time. pt has pacemaker Dementia - Patient does not have capacity at this time to make medical decision. Patient knows name/ but does not always know where he is. Patient does now know why is he here. - Working on finding next of kin/medical decision maker. Requested records from his NH - After review of records - patients daughter info in 07/2016: [phone] & [phone] - called her and awaiting call back. CODE: FULL Addendum - Attending - Attending Attestation Date/Time: 05/17/18 6755 I personally evaluated the patient and discussed the management with Dr. Carlson and Dr. Mariee I agree with the History, Examination, Assessment and Plan documented above with any addition or exceptions noted below. 87 yo male with multiple medical conditions admitted for Sepsis. HD#4 Complains of cough and congestion today. Mild swelling in left upper extremity where IV is located. VS, Labs and imaging reviewed. Diffuse crackles on exam possibly worse than before. 1. Sepsis: Resolved. 2. CAP vs HAP: Procal not indicative of bacterial infection. Consider discontinuing antibiotics. 3. COPD ex: Continue oral steroids and scheduled breathing treatments. May continue antibiotics for treatment but could also consider d/c due to procal. 4. rEFHF with acute ex: Due to infection mild ex and worsen yesterday due to need for hydration. Add IV lasix today. Restart home meds. Adjust as needed. Continue daily weights and strict I/Os. Add IS to bedside with RT. 5. CULLEN on CKD III: Renally dose all meds. GFR improved with hydration. 6. hx of A. fib: Monitor on tele. On Xarelto. 7. Dementia: Stable. No evidence of owning. Will discuss likely need to transition to patient into completely shelter facility instead of assisted living. Dispo: Continue breathing treatments. Stop fluids. Strict fluid restriction. IV Lasix today. Ren
[2018-05-17 13:34] LABS: Hemoglobin 9.4 g/dL (14.0-18.0); Mean Corpuscular HGB CONC 30.3 g/dL (32.0-36.0); Mean Corpuscular Hemoglobin 31.6 pg (27.0-31.0); Mean Platelet Volume 8.8 fL (7.4-10.4); Platelet Count 337 thou/uL (130-400); Red Blood Cell (RBC) Count 2.98 mill/uL (4.70-6.10); White Blood Cell (WBC) Count 5.3 thou/uL (4.8-10.8)
[2018-05-17 13:41] LABS: Anisocytosis MODERATE=16-30 cells (100X) (0-5/hpf); Band 3 % (5-11); Lymphocytes 11 % (21-51); MDiff Complete? YES; Macrocytosis SLIGHT = 6-15 cells (100X) (0-5/hpf); Monocytes 7 % (0-10); Neutrophil 79 % (42-75); Nucleated RBC 13 % (0); Ovalocytes SLIGHT = 2-5 cells (100X) (0-1/hpf); PLT Morphology Comment Appears Adequate; Poikilocytosis SLIGHT = 6-15 cells (100X) (0-5/hpf); Polychromasia SLIGHT = 2-3 cells (100X) (0-2/hpf); Schistocytes SLIGHT = 2-5 cells (100X) (0-1/hpf); Target Cells SLIGHT = 2-5 cells (100X) (0-1/hpf)
[2018-05-17] MEDS: Simvastatin 5 MG TAB PO SCH (20:41)
[2018-05-18 05:55] LABS: Anion Gap 15 mmol/L (10-20); BUN (Urea Nitrogen) 63 mg/dL (8.4-25.7); Calc. Creatinine Clearance 28 mL/min (70-130); Calcium 8.9 mg/dL (7.8-10.44); Carbon Dioxide 15 mmol/L (23-31); Chloride 106 mmol/L (98-107); Estimated GFR-MDRD 34; Glucose 137 mg/dL (83-110); Potassium 5.1 mmol/L (3.5-5.1); Sodium 131 mmol/L (136-145)
[2018-05-18 06:32] LABS: Band 2 % (5-11); Elliptocytes SLIGHT = 2-5 cells (100X) (0-1/hpf); Hemoglobin 11.3 g/dL (14.0-18.0); Hypochromia SLIGHT = 6-15 cells (100X) (0-5/hpf); Lymphocytes 7 % (21-51); MDiff Complete? YES; Mean Corpuscular HGB CONC 31.2 g/dL (32.0-36.0); Mean Corpuscular Hemoglobin 32.4 pg (27.0-31.0); Mean Platelet Volume 9.2 fL (7.4-10.4); Monocytes 2 % (0-10); Neutrophil 90 % (42-75); Nucleated RBC 6 % (0); PLT Morphology Comment Appears Adequate; Platelet Count 341 thou/uL (130-400); Red Blood Cell (RBC) Count 3.48 mill/uL (4.70-6.10); Target Cells SLIGHT = 2-5 cells (100X) (0-1/hpf); White Blood Cell (WBC) Count 7.8 thou/uL (4.8-10.8)
--- NOTE | 2018-05-18 08:47 | PDOC.FM ---
- Subjective Subjective: Pt reports feeling well this AM. Reports continued but improved cough, no other complaints. no cp no palpitations, no fever/chills - Objective MAR Reviewed: Yes Vital Signs & Weight: Vital Signs (12 hours) Temp Pulse Resp BP Pulse Ox 05/18/18 07:39 97.1 F L 88 16 128/82 100 05/18/18 07:33 95 05/18/18 07:32 84 20 95 05/18/18 03:22 98.7 F 81 21 H 145/58 H 97 05/18/18 01:32 75 20 96 05/17/18 21:55 67 20 94 L Weight Weight 74.933 kg I&O: 05/17/18 05/18/18 05/19/18 06:59 06:59 06:59 Intake Total 1531 810 Output Total 950 875 Balance 581 -65 Result Diagrams: 05/19/18 04:32 05/20/18 04:23 Phys Exam - Physical Examination Constitutional: NAD HEENT: moist MMs, sclera anicteric Neck: no JVD, supple Respiratory: no wheezing crackles in bilat lung bases (improved) Cardiovascular: RRR, no significant murmur Gastrointestinal: soft, non-tender Musculoskeletal: pulses present LUE edema, no erythema, no TTP, normal sensation full ROM Neurological: normal sensation, moves all 4 limbs Psychiatric: normal affect Deviation from normal: Alert and oriented x2 to person and time Skin: no rash, normal turgor Dx/Plan (1) COPD exacerbation Code(s): J44.1 - CHRONIC OBSTRUCTIVE PULMONARY DISEASE W (ACUTE) EXACERBATION Status: Acute (2) Community acquired bacterial pneumonia Code(s): J15.9 - UNSPECIFIED BACTERIAL PNEUMONIA Status: Acute (3) Hx of deep venous thrombosis Code(s): Z86.718 - PERSONAL HISTORY OF OTHER VENOUS THROMBOSIS AND EMBOLISM Status: Acute (4) Acute worsening of stage 3 chronic kidney disease Code(s): N18.3 - CHRONIC KIDNEY DISEASE, STAGE 3 (MODERATE) Status: Acute (5) Dementia Code(s): F03.90 - UNSPECIFIED DEMENTIA WITHOUT BEHAVIORAL DISTURBANCE Status: Acute Qualifiers: Dementia type: unspecified type (6) CAD (coronary artery disease) Code(s): I25.10 - ATHSCL HEART DISEASE OF [place] CORONARY ARTERY W/O ANG PCTRS Status: Chronic (7) COPD (chronic obstructive pulmonary disease) Status: Chronic (8) Chronic systolic (congestive) heart failure Code(s): I50.22 - CHRONIC SYSTOLIC (CONGESTIVE) HEART FAILURE Status: Chronic - Plan Plan: Sepsis 2/2 to COPD exacerbation 2/2 CAP A- WBC decreased today. Pt remains afebrile. BCx shows NGTD. patient met sepsis criteria in the ED w/ WBC 11.4, RR 24 + PNA source. 39 % bands present. CXR: infiltrate in right infrahilar region. pro delmy wnl. LA 1.9->1.1->1.3. Urine strep pneumo and legionelle negative P- continue PO hydration - continue IV levaquin - duonebs and prednisone indeterminate Trop - 0.103->0.110->0.113 -no cardiac symptoms, will monitor symptoms CULLEN on CKD - improved and closer to baseline - PO hydration Hyponatremia - 131 today, will continue to monitor Macrocytic anemia - Hgb improved - MCV 103 - folate and b12 wnl CHFrEF, present on admission - Echo in 2017: EF 20-25% - BNP 4000, at baseline -Pt has bilateral lung crackles today, no complaints of SOB -monitor symptoms CAD - aware, will continue home meds previous DVT - on xarelto -will continue HLD - aware, will continue home meds HTN - aware, will continue home meds Atrial Fibrillation - patient will monitored on tele. sinus rhythm at this time. pt has pacemaker Dementia - Patient does not have capacity at this time to make medical decision. Patient knows name/ but does not always know where he is. Patient does now know why is he here. - Working on finding next of kin/medical decision maker. Requested records from his NH - After review of records - patients daughter in law info in 07/2016: [phone] & [phone] - called her and awaiting call back. CODE: FULL Addendum - Attending - Attending Attestation Date/Time: 05/18/18 1200 I personally evaluated the patient and discussed the management with Dr. Carlson and Dr. Mariee I agree with the History, Examination, Assessment and Plan documented above with any addition or exceptions noted below. 87 yo male with multiple medical conditions admitted for Sepsis. HD#5 Complains of cough and congestion today. Mild swelling in left upper extremity where IV is located. VS, Labs and imaging reviewed. Diffuse crackles on exam possibly worse than before. 1. Sepsis: Resolved. 2. CAP vs HAP: Procal not indicative of bacterial infection. Stop antibiotics. 3. COPD ex: Continue oral steroids and scheduled breathing treatments. D/c antibiotics. 4. rEFHF with acute ex: Due to infection mild ex and worsen due to need for hydration. Minimal response to IV lasix. Some improvement to symptoms. Continue home meds. Add metolazone 2.5 mg 1 dose. Continue daily weights and strict I/ Os. Continue IS to bedside with RT. ECHO ordered. Last LVEF 07/2016. 5. CULLEN on CKD III: Renally dose all meds. GFR improved with hydration. 6. hx of A. fib: Monitor on tele. On Xarelto but was not restarted at admission. Unsure why. 7. Dementia: Stable. No evidence of sundowning. Will discuss likely need to transition to patient into completely residential facility instead of assisted living. 8. Left UE edema: Likely due to IVFs. Will repeat ultrasound to evaluate for VTE due to history. Patient noted to have prior hx of VTE in this arm. Was on manager long term care Xarelto but was not restarted at admission. Will determine anticoagulant based on sono results. Dispo: Continue breathing treatments. Attempt to improve pulmonary edema/heart failure with diuresis while balancing CULLEN. Follow up emelyno. Ren
[2018-05-18] MEDS: Ferrous Sulfate 325 MG TAB PO SCH (09:11)
[2018-05-18] MEDS: Folic Acid 1 MG TAB PO SCH (09:11)
[2018-05-18] MEDS: Carvedilol 3.125 MG TAB PO SCH ×2 (09:11→20:45)
[2018-05-18] MEDS: predniSONE 20 MG TAB PO SCH (09:11)
[2018-05-18] MEDS: Ascorbic Acid 500 mg Chewable Tablet PO SCH (09:11)
[2018-05-18] MEDS: Citalopram 10 MG TAB PO SCH (09:11)
[2018-05-18] MEDS ORDERED: Furosemide 20 MG TAB PO SCH ×2 (10:15→11:45)
[2018-05-18] MEDS ORDERED: Enoxaparin Sodium 80 MG/0.8 ML SYRINGE SC SCH (12:00)
--- NOTE | 2018-05-18 13:01 | ULT ---
ULTRASOUND LEFT UPPER EXTREMITY VENOUS DOPPLER: Date: 05/18/18 HISTORY: Left upper extremity edema. Pain. COMPARISON: Ultrasound from 2017. TECHNIQUE: Real-time Marte scale and color Doppler with spectral analysis of the upper extremity venous system wa s performed. Internal jugular, subclavian, and axillary vein, as well as brachial, ulnar, basilic, an d cephalic veins were interrogated. FINDINGS: There is complete thrombosis of the left subclavian axillary vein, as well as the basilic and cephali c veins. IMPRESSION: High grade thrombosis left upper extremity. Nurse notified of findings via telephone at 1119 hours. CODE CR. POS: JESSICA
[2018-05-18] MEDS: Acetaminophen 325 MG TAB PO PRN ×2 (13:54→20:45)
[2018-05-18 16:55] LABS: Hemoglobin 10.4 g/dL (14.0-18.0); Platelet Count 288 thou/uL (130-400)
[2018-05-18] MEDS: Simvastatin 5 MG TAB PO SCH (20:45)
[2018-05-19] MEDS: Acetaminophen 325 MG TAB PO PRN ×2 (04:33→21:18)
[2018-05-19 05:48] LABS: Calcium 8.6 mg/dL (7.8-10.44); Chloride 106 mmol/L (98-107); Potassium 5.2 mmol/L (3.5-5.1); Sodium 130 mmol/L (136-145)
[2018-05-19 05:50] LABS: Band 16 % (5-11); Hemoglobin 10.7 g/dL (14.0-18.0); Lymphocytes 12 % (21-51); MDiff Complete? YES; Mean Corpuscular HGB CONC 30.7 g/dL (32.0-36.0); Mean Corpuscular Hemoglobin 32.1 pg (27.0-31.0); Mean Platelet Volume 9.3 fL (7.4-10.4); Monocytes 7 % (0-10); Neutrophil 65 % (42-75); Nucleated RBC 11 % (0); PLT Morphology Comment Appears Adequate; Platelet Count 286 thou/uL (130-400); RBC Distribution Width 20.8 % (11.5-14.5); Red Blood Cell (RBC) Count 3.34 mill/uL (4.70-6.10); Target Cells MODERATE= 6-15 cells (100X) (0-1/hpf); White Blood Cell (WBC) Count 7.7 thou/uL (4.8-10.8)
[2018-05-19 06:08] LABS: BUN (Urea Nitrogen) 69 mg/dL (8.4-25.7); Calc. Creatinine Clearance 25 mL/min (70-130); Carbon Dioxide Less than 16 mmol/L (23-31); Estimated GFR-MDRD 30; Glucose 138 mg/dL (83-110)
--- NOTE | 2018-05-19 08:54 | PDOC.FM ---
- Subjective Subjective: Pt resting comfortably. reports good rest overnight and has no complaints at this time. He reports his L arm is swollen but does not hurt. No sob, cough, no cp no palpitations, no syncope - Objective MAR Reviewed: Yes Vital Signs & Weight: Vital Signs (12 hours) Temp Pulse Resp BP Pulse Ox 05/19/18 06:11 89 16 95 05/19/18 03:11 97.6 F 86 16 129/66 96 05/18/18 23:58 99.2 F 78 16 119/61 93 L 05/18/18 22:10 85 16 94 L Weight Weight 72.212 kg I&O: 05/18/18 05/19/18 05/20/18 06:59 06:59 06:59 Intake Total 810 350 Output Total 875 650 Balance -65 -300 Result Diagrams: 05/19/18 04:32 05/20/18 04:23 Phys Exam - Physical Examination Constitutional: NAD HEENT: moist MMs, sclera anicteric Neck: no JVD, supple Respiratory: no wheezing crackles in bilat lung bases (continued improvement) Cardiovascular: RRR, no significant murmur Gastrointestinal: soft, non-tender Musculoskeletal: pulses present LUE edema, no ttp, no erythema Neurological: normal sensation, moves all 4 limbs Psychiatric: normal affect Skin: no rash, normal turgor Dx/Plan (1) COPD exacerbation Code(s): J44.1 - CHRONIC OBSTRUCTIVE PULMONARY DISEASE W (ACUTE) EXACERBATION Status: Acute (2) Community acquired bacterial pneumonia Code(s): J15.9 - UNSPECIFIED BACTERIAL PNEUMONIA Status: Acute (3) Hx of deep venous thrombosis Code(s): Z86.718 - PERSONAL HISTORY OF OTHER VENOUS THROMBOSIS AND EMBOLISM Status: Acute (4) Acute worsening of stage 3 chronic kidney disease Code(s): N18.3 - CHRONIC KIDNEY DISEASE, STAGE 3 (MODERATE) Status: Acute (5) Dementia Code(s): F03.90 - UNSPECIFIED DEMENTIA WITHOUT BEHAVIORAL DISTURBANCE Status: Acute Qualifiers: Dementia type: unspecified type (6) CAD (coronary artery disease) Code(s): I25.10 - ATHSCL HEART DISEASE OF [place] CORONARY ARTERY W/O ANG PCTRS Status: Chronic (7) COPD (chronic obstructive pulmonary disease) Status: Chronic (8) Chronic systolic (congestive) heart failure Code(s): I50.22 - CHRONIC SYSTOLIC (CONGESTIVE) HEART FAILURE Status: Chronic - Plan Plan: Sepsis 2/2 to COPD exacerbation 2/2 CAP A- WBC decreased today. Pt remains afebrile. BCx shows NGTD. patient met sepsis criteria in the ED w/ WBC 11.4, RR 24 + PNA source. 39 % bands present. CXR: infiltrate in right infrahilar region. pro delmy wnl. LA 1.9->1.1->1.3. Urine strep pneumo and legionelle negative P- continue PO hydration - consider switch to PO levaquin - duonebs and prednisone LUE DVT A- US of LUE yesterday shows dvt. Pt was started on therapeutic lovenox yesterday as adjusted for pt creatinine clearance P- continue therapeautic lovenox - will get anti 10a lvl 4 hrs after today's dose indeterminate Trop - 0.103->0.110->0.113 -no cardiac symptoms, will monitor symptoms CULLEN on CKD - Cr. 2.12 today, last baseline we have was in summer 2016, Cr around 1.7 - PO hydration Hyponatremia - 130 today, will continue to monitor - urine osm and Na, serum osm Macrocytic anemia - Hgb improved - MCV 103 - folate and b12 wnl CHFrEF, present on admission - Echo in 2017: EF 20-25% - BNP 4000, at baseline -Pt has bilateral lung crackles today, no complaints of SOB -monitor symptoms CAD - aware, will continue home meds previous DVT - on therapeutic lovenox as above HLD - aware, will continue home meds HTN - aware, will continue home meds Atrial Fibrillation - patient will monitored on tele. sinus rhythm at this time. pt has pacemaker Dementia - Patient does not have capacity at this time to make medical decision. Patient knows name/ but does not always know where he is. Patient does now know why is he here. - Working on finding next of kin/medical decision maker. Requested records from his NH - After review of records - patients daughter in law info in 07/2016: [phone] & [phone] - called her and awaiting call back. CODE: FULL Addendum - Attending - Attending Attestation Date/Time: 05/19/18 1241 I personally evaluated the patient and discussed the management with Dr. Carlson and Dr. Mariee I agree with the History, Examination, Assessment and Plan documented above with any addition or exceptions noted below. 87 yo male with multiple medical conditions admitted for Sepsis. HD#6 Cough and congestion improving per patient. Swelling of arm improving. Denies pain. VS, Labs and imaging reviewed. Crackles improving. Able to get to 1800 mL on IS. 1. Sepsis: Resolved. 2. CAP vs HAP: Procal not indicative of bacterial infection. 3. COPD ex: Continue oral steroids and scheduled breathing treatments. Completed antibiotic course. 4. rEFHF with acute ex: Due to infection mild ex and worsen due to need for hydration. Improved diuresis after metolazone. Continue daily weights and strict I/Os. Continue IS to bedside with RT. ECHO ordered. Last LVEF 07/2016. 5. CULLEN on CKD III: Renally dose all meds. GFR stable. 6. hx of A. fib: Monitor on tele. On Xarelto but was not restarted at admission. Unsure why. Due to CrCL not able to tolerate. Will switch to different anticoagulant approved for patient's renal function. 7. Dementia: Stable. No evidence of sundowning. Will discuss likely need to transition to patient into completely residential facility instead of assisted living. 8. Left UE edema: Related to subcutaneous edema and VTE. PT and elevation. 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 Was off anticoagulant for 4 days. I do not think that VTE noted on sono is acute. On review of past sono this appears to be chronic. Poor litature supporting anything other than parental anticoagulants for treatment. Will curbside CT surg and review CHEST guidelines for treatment options. Will discuss with family and facility different treatment options. Dispo: Continue breathing treatments. Pulm edema improving. Follow up UE VTE treatment. Ren
[2018-05-19] MEDS: Enoxaparin Sodium 80 MG/0.8 ML SYRINGE SC SCH (09:48)
[2018-05-19] MEDS: Ascorbic Acid 500 mg Chewable Tablet PO SCH (09:49)
[2018-05-19] MEDS: Furosemide 40 MG TAB PO SCH (09:49)
[2018-05-19] MEDS: Ferrous Sulfate 325 MG TAB PO SCH (09:49)
[2018-05-19] MEDS: predniSONE 20 MG TAB PO SCH (09:49)
[2018-05-19] MEDS: Carvedilol 3.125 MG TAB PO SCH ×2 (09:49→21:18)
[2018-05-19] MEDS: Folic Acid 1 MG TAB PO SCH (09:50)
[2018-05-19] MEDS: Citalopram 10 MG TAB PO SCH (09:50)
[2018-05-19] MEDS ORDERED: Metolazone 2.5 MG TAB PO SCH (11:30)
[2018-05-19 13:01] LABS: Osmolality, Urine 422 mOsm/kg (300-900)
[2018-05-19 13:02] LABS: Sodium, Urine 60 mmol/L (Not Available)
[2018-05-19] MEDS: Furosemide 20 MG TAB PO SCH (14:17)
[2018-05-19] MEDS: Simvastatin 5 MG TAB PO SCH (21:18)
[2018-05-20 05:45] LABS: Anion Gap 15 mmol/L (10-20); BUN (Urea Nitrogen) 72 mg/dL (8.4-25.7); Calc. Creatinine Clearance 24 mL/min (70-130); Calcium 9.3 mg/dL (7.8-10.44); Carbon Dioxide 24 mmol/L (23-31); Chloride 100 mmol/L (98-107); Estimated GFR-MDRD 29; Glucose 150 mg/dL (83-110); Potassium 4.9 mmol/L (3.5-5.1); Sodium 134 mmol/L (136-145)
--- NOTE | 2018-05-20 08:24 | PDOC.FM ---
- Subjective Subjective: Pt reports feeling well this morning and reports being improved though he is demented. He is A&O x1 this AM. no complaints no fever/chills, no pains, no sob, cough - Objective MAR Reviewed: Yes Vital Signs & Weight: Vital Signs (12 hours) Temp Pulse Resp BP Pulse Ox 05/20/18 06:09 88 18 95 05/20/18 05:24 97 05/20/18 03:57 94 L 05/20/18 03:12 99.4 F 83 18 121/57 L 97 05/19/18 22:49 94 L Weight Weight 71.395 kg I&O: 05/19/18 05/20/18 05/21/18 06:59 06:59 06:59 Intake Total 350 1200 Output Total 650 1250 Balance -300 -50 Result Diagrams: 05/19/18 04:32 05/20/18 04:23 Phys Exam - Physical Examination Constitutional: NAD HEENT: moist MMs, sclera anicteric Neck: no JVD, supple Respiratory: no wheezing crackles in bilateral lung bases, mildly improved. Cardiovascular: RRR, no significant murmur Gastrointestinal: soft, non-tender Musculoskeletal: pulses present LUE edema Neurological: normal sensation, moves all 4 limbs Psychiatric: normal affect Skin: no rash, normal turgor Dx/Plan (1) COPD exacerbation Code(s): J44.1 - CHRONIC OBSTRUCTIVE PULMONARY DISEASE W (ACUTE) EXACERBATION Status: Acute (2) Community acquired bacterial pneumonia Code(s): J15.9 - UNSPECIFIED BACTERIAL PNEUMONIA Status: Acute (3) Hx of deep venous thrombosis Code(s): Z86.718 - PERSONAL HISTORY OF OTHER VENOUS THROMBOSIS AND EMBOLISM Status: Acute (4) Acute worsening of stage 3 chronic kidney disease Code(s): N18.3 - CHRONIC KIDNEY DISEASE, STAGE 3 (MODERATE) Status: Acute (5) Dementia Code(s): F03.90 - UNSPECIFIED DEMENTIA WITHOUT BEHAVIORAL DISTURBANCE Status: Acute Qualifiers: Dementia type: unspecified type (6) CAD (coronary artery disease) Code(s): I25.10 - ATHSCL HEART DISEASE OF [place] CORONARY ARTERY W/O ANG PCTRS Status: Chronic (7) COPD (chronic obstructive pulmonary disease) Status: Chronic (8) Chronic systolic (congestive) heart failure Code(s): I50.22 - CHRONIC SYSTOLIC (CONGESTIVE) HEART FAILURE Status: Chronic - Plan Plan: Sepsis 2/2 to COPD exacerbation 2/2 CAP, resolved A- Pt is status post treatment with intitial ABX of vanc and zosyn x2 days, along with levaquin x7 days P- continue PO hydration - duonebs -will DC prednisone today LUE DVT A- US of LUE shows dvt. Pt was started on therapeutic lovenox as adjusted for pt creatinine clearance P- will consider switching to xarelto per reccomendations from [facility] indeterminate Trop - 0.103->0.110->0.113 -no cardiac symptoms, will monitor symptoms CULLEN on CKD - Cr. 2.15 today, last baseline we have was in summer 2016, Cr around 1.7 - PO hydration Hyponatremia - 134 today, will continue to monitor Macrocytic anemia - Hgb improved - MCV 103 - folate and b12 wnl CHFrEF A- Echo in 2017: EF 20-25%. BNP 4000, at baseline. Pt has bilateral lung crackles today, no complaints of SOB P-continue home lasix -will likely give another dose of metolazone today CAD - aware, will continue home meds previous DVT - likely switch to xarelto as listed above HLD - aware, will continue home meds HTN - aware, will continue home meds Atrial Fibrillation - patient will monitored on tele. pt has pacemaker Dementia - Patient does not have capacity at this time to make medical decision. Patient knows name/ but does not always know where he is. Patient does now know why is he here. - Working on finding next of kin/medical decision maker. Requested records from his NH - After review of records - patients daughter in law info in 07/2016: [phone] & [phone] - called her and awaiting call back. Addendum - Attending - Attending Attestation Date/Time: 05/20/18 3373 I personally evaluated the patient and discussed the management with Dr. Carlson and Dr. Mariee I agree with the History, Examination, Assessment and Plan documented above with any addition or exceptions noted below. 87 yo male with multiple medical conditions admitted for Sepsis. HD#7 Patient feeling well. At baseline. VS, Labs and imaging reviewed. 1. Sepsis: Resolved. 2. CAP vs HAP: Likely viral. Resolved. Would recommend follow up CXR due to faint right infiltrate in 4 wks. 3. COPD ex: Continue oral steroids and scheduled breathing treatments. Completed antibiotic course. 4. rEFHF with acute ex: Due to infection mild ex and worsen due to need for hydration. Improved diuresis after metolazone. Continue daily weights and strict I/Os. Continue IS to bedside with RT. Stable LVEF from 2017. 5. CULLEN on CKD III: Renally dose all meds. GFR stable. CrCL too low for Xarelto. 6. hx of A. fib: No acute episodes. Will change from Xarelto to Eliquis due to renal function. 7. Dementia: Stable. No evidence of sundowning. Will discuss likely need to transition to patient into completely longterm facility instead of assisted living. 8. Left UE edema: Related to subcutaneous edema and VTE. PT and elevation. 9. Chronic LUE DVT: Will continue treatment dose of Eliquis. Discussed with family. Facility not able to give parental anticoagulant. Dispo: Ok to d/c back to assisted living. Discussed need to transtion to longterm facility due to poor mobility. Ren
[2018-05-20] MEDS: Ascorbic Acid 500 mg Chewable Tablet PO SCH (09:02)
[2018-05-20] MEDS: Enoxaparin Sodium 80 MG/0.8 ML SYRINGE SC SCH (09:02)
[2018-05-20] MEDS: predniSONE 20 MG TAB PO SCH (09:02)
[2018-05-20] MEDS: Acetaminophen 325 MG TAB PO PRN (09:02)
[2018-05-20] MEDS: Citalopram 10 MG TAB PO SCH (09:02)
[2018-05-20] MEDS: Folic Acid 1 MG TAB PO SCH (09:03)
[2018-05-20] MEDS: Furosemide 40 MG TAB PO SCH (09:03)
[2018-05-20] MEDS: Ferrous Sulfate 325 MG TAB PO SCH (09:03)
[2018-05-20] MEDS: Carvedilol 3.125 MG TAB PO SCH (09:03)
[2018-05-20] MEDS: Furosemide 20 MG TAB PO SCH (14:27)
[2018-05-20 15:40] VITALS: TEMP 98.1
[2018-05-20 16:26] VITALS: BP 117/55
--- NOTE | 2018-05-21 10:40 | DIS ---
DATE OF ADMISSION: 05/13/2018 DATE OF DISCHARGE: 05/20/2018 RESIDENT: Sung Carlson MD ADMITTING ATTENDING: Dr. Jamari Love. DISCHARGE ATTENDING: Dr. Anayeli Park. CONSULTS: None. PROCEDURES PERFORMED: 1. 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 The heart size is enlarged. Mild pulmonary vascular congestion. Infiltrate is seen in the right infrahilar region. No pneumothoraces or large effusions identified. 2. 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 PRIMARY DIAGNOSIS: Sepsis, secondary to community-acquired pneumonia. SECONDARY DIAGNOSES: 1. Chronic obstructive pulmonary disease exacerbation. 2. Deep venous thrombosis of left upper extremity. 3. Congestive heart failure. 4. Hyponatremia. 5. Acute kidney injury. DISCHARGE MEDICATIONS: 1. Simvastatin 10 mg p.o. nightly. 2. Pantoprazole 40 mg p.o. daily. 3. Vitamin C 250 mg p.o. daily. 4. Albuterol sulfate 90 mcg inhaled b.i.d. 5. Isosorbide mononitrate 30 mg p.o. daily. 6. Furosemide 40 mg p.o. daily. 7. Furosemide 20 mg p.o. q.a.m. 8. Folic acid 1 mg p.o. daily. 9. Ferrous sulfate 325 mg p.o. daily. 10. Citalopram 10 mg p.o. daily. 11. Carvedilol 3.125 mg p.o. b.i.d. 12. Acetaminophen 650 mg p.o. q.4 hours p.r.n. 13. Vitamin D 2000 units p.o. daily. 14. Albuterol sulfate 2.5 mg nebulized q.2 hours p.r.n. 15. Eliquis 10 mg p.o. b.i.d. for five days and then 5 mg p.o. b.i.d. after five days. 16. Flovent Diskus 100 mcg inhaled daily. 17. DuoNeb 3 mL nebulized q.6 hours prn 18. Prednisone 40 mg p.o. daily x3 days. 19. Mucinex 600 mg p.o. b.i.d. 20. Metolazone 2.5 mg p.o. daily p.r.n. when the patient gain 5 pounds. DISCONTINUED MEDICATIONS: Diclofenac sodium HISTORY OF PRESENT ILLNESS AND HOSPITAL COURSE: This is an 87-year-old male, who presented to the hospital and was found to have community-acquired pneumonia in the setting of COPD. The patient was septic on presentation and was originally treated with 3 days of vancomycin, Zosyn, and Levaquin. As the patient showed improvement over those days, antibiotic regimen was de-escalated to Levaquin alone, on which the patient showed continued improvement, though it was slow. Of note, the patient also has significant history of congestive heart failure and so with even gentle fluids on sepsis treatment, the patient seemed to have some fluid overload. Fluids were stopped, and the patient was restarted on his home Lasix regimen. The patient had crackles on exam throughout much of his hospital stay, despite the fact that he was not requiring oxygen even after a few days of treatment with antibiotics. Of note, hospital stay was complicated with left upper extremity swelling and the patient had ultrasound done and was found to have left upper extremity DVT. The patient was then started on therapeutic Lovenox. Eventually after the patient showed clinical improvement with antibiotics, prednisone and DuoNebs, the patient was stable for discharge and discharged back to [facility]. Regarding his DVT, recommendations for treatment with Eliquis were made as well as orders for outpatient use of Eliquis. DISCHARGE DISPOSITION: Stable. DISCHARGE INSTRUCTIONS: 1. Location: [facility]. 2. Diet: Heart-healthy. 3. Activity: As tolerated. 4. Followup: Follow up with [facility] in 7 days and with [facility]. Job ID: [id number] [facility]
== END 2018-05-20 20:10 | DRG 871 ==
LOC: ERS 10:06 → 2NO 12:43
PROVIDERS: ADMIT Family Medicine; ATTEND Family Medicine
PROC: B24BZZZ Ultrasonography of Heart with Aorta (ICD-10-PCS; principal; 2018-05-20)
DX: A41.9 Sepsis, unspecified organism (principal); J18.9 Pneumonia, unspecified organism; J44.1 Chronic obstructive pulmonary disease with (acute) exacerbation; I82.622 Acute embolism and thrombosis of deep veins of left upper extremity; E87.1 Hypo-osmolality and hyponatremia; N17.9 Acute kidney failure, unspecified; I13.0 Hypertensive heart and chronic kidney disease with heart failure and stage 1 through stage 4 chronic kidney disease, or unspecified chronic kidney disease; I50.22 Chronic systolic (congestive) heart failure; Z79.810 Long term (current) use of selective estrogen receptor modulators (SERMs); Z79.811 Long term (current) use of aromatase inhibitors; Z79.51 Long term (current) use of inhaled steroids; Z79.1 Long term (current) use of non-steroidal anti-inflammatories (NSAID); Z79.899 Other long term (current) drug therapy; F03.90 Unspecified dementia, unspecified severity, without behavioral disturbance, psychotic disturbance, mood disturbance, and anxiety; N18.3 Chronic kidney disease, stage 3 (moderate); Z95.0 Presence of cardiac pacemaker; I48.91 Unspecified atrial fibrillation; I25.2 Old myocardial infarction; F32.9 Major depressive disorder, single episode, unspecified; Z90.49 Acquired absence of other specified parts of digestive tract; E78.5 Hyperlipidemia, unspecified; I25.10 Atherosclerotic heart disease of native coronary artery without angina pectoris; D53.9 Nutritional anemia, unspecified
CPT/HCPCS: 36415; 36416; 71045; 80048; 80053; 82553; 82570; 82607; 82746; 83605; 83880; 83930; 83935; 84145; 84300; 84484; 84540; 85025; 85520; 87040; 87804; 87899; 93005; 93306; 94640; 96365; 96367; 96375; G8978-GP-CL; G8979-GP-CJ; G8987-GO-CL; G8988-GO-CJ; J1650; J1956; J2543; J2930; J3370; J7050; J7506; J7620

== ENCOUNTER 2018-05-27 12:26 | Emergency (ER) | payer MEDICARE, OTHER ==
[2018-05-27 13:08] LABS: Hemoglobin 11.6 g/dL (14.0-18.0)
[2018-05-27 13:12] LABS: INR-International Normal Ratio 1.7; Prothrombin Time 19.7 SEC (12.0-14.7)
[2018-05-27 13:13] LABS: PTT 36.4 SEC (22.9-36.1)
== END 2018-05-27 15:30 | disposition home or self-care (01) ==
LOC: ERS 12:26
DX: R31.9 Hematuria, unspecified (principal); D68.9 Coagulation defect, unspecified; I11.0 Hypertensive heart disease with heart failure; I50.9 Heart failure, unspecified; I48.91 Unspecified atrial fibrillation; J44.9 Chronic obstructive pulmonary disease, unspecified; F32.9 Major depressive disorder, single episode, unspecified; I25.2 Old myocardial infarction; Z79.899 Other long term (current) drug therapy
CPT/HCPCS: 36415; 85014; 85018; 85610; 85730; 99284